=== PATIENT | male | born 1985 | race Two or more races ===

== ENCOUNTER 2023-12-05 08:45 | Emergency (ER) | payer MEDICAID, OTHER ==
[~2023-12-05] VITALS: Ht 157.5 cm; Wt 69.2 kg
[2023-12-05 10:16] VITALS: BP 130/104; PULSE 83; RESP 18; TEMP 98; O2SAT 95
[2023-12-05] MEDS: FLUORESCEIN SOD OPTH TEST STRIP RIGHTEYE ONE (11:15)
[2023-12-05] MEDS: TETRACAINE HCL 0.5% OPTH(EYE) SOLN 4ML RIGHTEYE ONE (11:15)
[2023-12-05] MEDS ORDERED: ERY05OO OP (12:03)
== END 2023-12-05 12:13 | disposition home or self-care (01) ==
LOC: ER 08:45
DX: S05.8X1A Other injuries of right eye and orbit, initial encounter (principal); H54.7 Unspecified visual loss; Z79.2 Long term (current) use of antibiotics; X58.XXXA Exposure to other specified factors, initial encounter; Y93.89 Activity, other specified; Y92.89 Other specified places as the place of occurrence of the external cause; Y99.8 Other external cause status